=== PATIENT | male | born 1950 | race Caucasian/White ===

== ENCOUNTER → 2021-02-11 11:22 | Outpatient (CLI) | payer MEDICARE, OTHER, SELFPAY ==
[2021-02-11 12:15] LABS: Add Manual Diff / Slide Review NO; Basophils Absolute Auto 0 /uL (0-100); Basophils Percent Auto 0.8 % (0-2); Eosinophils Absolute Auto 100 /uL (0-450); Eosinophils Percent Auto 1.6 % (2-4); Hematocrit 39.2 % (41-53); Hemoglobin 13.3 g/dL (13.5-17.5); Lymphocytes Absolute Auto 1000 /uL (1100-4500); Mean Corpuscular Hemoglobin 29.3 PG (26-34); Mean Corpuscular Volume 86.4 fL (80-100); Monocytes Absolute Auto 400 /uL (0-900); Monocytes Percent Auto 7.2 % (3-14); Neutrophils Absolute Auto 3400 /uL (1500-7000); Neutrophils Percent Auto 69.4 % (50-75); Platelet Count 220 X10^3/uL (150-400); Red Blood Cell Count 4.54 X10^6/uL (4.5-5.9); Red Cell Distribution Width 13.7 % (11.6-14.8); White Blood Cell Count 4.9 X10^3/uL (4.5-11.0)
[2021-02-11 12:22] LABS: Hemoglobin A1C% w Est Avg Glu 4.9 % (4.0-6.0)
[2021-02-11 12:32] LABS: Alanine Aminotransferase 13 IU/L (<50); Albumin 4.4 g/dL (3.5-5.0); Albumin Globulin Ratio 1.6 (1.0-2.8); Alkaline Phosphatase 60 U/L (38-126); Aspartate Aminotransferase 20 IU/L (17-59); BUN Creatinine Ratio 23.9 (6-22); Bilirubin Total 0.5 mg/dL (0.2-1.3); Blood Urea Nitrogen 16 mg/dL (9-20); Calcium 9.4 mg/dL (8.4-10.2); Carbon Dioxide 24 mmol/L (22-32); Chloride 108 mmol/L (98-107); Cholesterol 125 mg/dL (140-199); Estimated Glomerular Filt Rate > 60.0 mL/min (>60); Globulin 2.7 g/dL (1.7-4.1); Glucose 92 mg/dL (80-110); HDL Cholesterol 49 mg/dL (40-60); Potassium 4.6 mmol/L (3.4-5.1); Sodium 140 mmol/L (137-145); Total Protein 7.1 g/dL (6.3-8.2); Triglycerides 43 mg/dL (35-150)
[2021-02-11 12:33] LABS: HEMOLYSIS < 15 (0-50); LDL Cholesterol Calculated 67 mg/dL (<100)
[2021-02-12 08:55] LABS: Prostate Specific Antigen 1.82 ng/mL (0.10-4.00)
== END ==
PROVIDERS: PCP Family Medicine; Referring Provider Family Medicine; Visit Provider Family Medicine
DX: I10 Essential (primary) hypertension (principal); Z80.42 Family history of malignant neoplasm of prostate
CPT/HCPCS: 36415; 80053; 80061; 83036; 84153; 85025

== ENCOUNTER → 2021-03-11 09:37 | Outpatient (CLI) | payer MEDICARE, OTHER, SELFPAY ==
[2021-03-11 10:10] LABS: BUN Creatinine Ratio 22.1 (6-22); Blood Urea Nitrogen 15 mg/dL (9-20); Calcium 9.1 mg/dL (8.4-10.2); Carbon Dioxide 25 mmol/L (22-32); Chloride 110 mmol/L (98-107); Estimated Glomerular Filt Rate > 60.0 mL/min (>60); Glucose 98 mg/dL (80-110); HEMOLYSIS < 15 (0-50); Potassium 4.8 mmol/L (3.4-5.1); Sodium 142 mmol/L (137-145)
== END ==
PROVIDERS: PCP Family Medicine; Referring Provider Family Medicine; Visit Provider Family Medicine
DX: I10 Essential (primary) hypertension (principal)
CPT/HCPCS: 36415; 80048

== ENCOUNTER → 2021-03-12 12:48 | Outpatient (CLI) | payer MEDICARE, OTHER, SELFPAY ==
--- NOTE | 2021-03-12 12:49 | DI.CT.S_ITS ---
PROCEDURE: CT ANGIO CHEST INDICATIONS: Surveillance for known thoracic aortic aneurysm TECHNIQUE: After the administration of intravenous contrast, 2 mm thick sections acquired from the pulmonary apices to the posterior costophrenic angles. 3-dimensional maximum intensity projection (MIP) coronal and sagittal reformats were then acquired through the thorax. For radiation dose reduction, the following was used: automated exposure control, adjustment of mA and/or kV according to patient size. COMPARISON: Outside Facility, , CT ANGIO CHEST, 02/13/2020, 7:57. FINDINGS: Image quality: Excellent. Aorta: The ascending thoracic aneurysmal dilatation described on the prior CT is unchanged measuring 4.8 x 4.8 centimeters. The aortic arch measures 3.1 centimeters, unchanged. The descending aorta measures 2.7 centimeters, unchanged. Lungs and pleura: No acute air space opacities. No pleural effusions or pneumothorax. Central and peripheral airways are patent and normal in caliber. Mediastinum: Heart chambers appear enlarged. The coronary arteries have atherosclerotic calcifications. No pericardial effusion. A prominent right hilar lymph node measuring 1.9 x 1.2 centimeters is unchanged. No mediastinal adenopathy by size criteria. Thoracic aorta and central pulmonary arteries are normal in size. Esophagus is normal in caliber. There is a small hiatal hernia. Bones and chest wall: No suspicious bony lesions. No vertebral body compression fractures. No axillary or supraclavicular adenopathy by size criteria. Thyroid gland is normal. Abdomen: Limited visualization of the upper abdomen shows no acute abnormality. IMPRESSION: 1. Aneurysmal dilatation of the ascending aorta measuring 4.8 x 4.8 centimeters, unchanged compared to prior CT on 02/13/2020. 2. Small hiatal hernia. 3. Coronary artery calcifications. Dictated by: Armando Ugalde M.D. on 03/26/2021 at 15:12 Approved by: Armnado Ugalde M.D. on 03/26/2021 at 15:21
== END ==
PROVIDERS: PCP Family Medicine; Referring Provider Family Medicine; Visit Provider Family Medicine
DX: I71.2 Thoracic aortic aneurysm, without rupture (principal); K44.9 Diaphragmatic hernia without obstruction or gangrene; I25.10 Atherosclerotic heart disease of native coronary artery without angina pectoris
CPT/HCPCS: 71275; Q9967

== ENCOUNTER → 2021-07-28 10:28 | Outpatient (CLI) | payer MEDICARE, OTHER, SELFPAY ==
--- NOTE | 2021-07-28 10:30 | DI.RAD.S_ITS ---
PROCEDURE: XR CERVICAL SPINE 2V OR 3V INDICATIONS: neck pain TECHNIQUE: 3 view(s) of the cervical spine were acquired. COMPARISON: None. FINDINGS: Bones: No fractures or dislocations to the C7-T1 level. The lateral masses of C1 appear intact on the odontoid view. No suspicious bony lesions. There is overall appearance of cervical straightening. Multilevel [id number] degenerative disc space narrowing is present most severe at C6-7. Minimal anterior osteophytes are present. Multilevel uncovertebral hypertrophy is present. Soft tissues: No prevertebral soft tissue swelling. IMPRESSION: Multilevel degenerative changes most notable at C6-7. Dictated by: Jennifer Arnold M.D. on 07/28/2021 at 16:10 Approved by: Jennifer Arnold M.D. on 07/28/2021 at 16:10
[2021-07-30 16:07] LABS: ANA Screen, IFA Negative (.)
== END ==
PROVIDERS: PCP Family Medicine; Referring Provider Family Medicine; Visit Provider Family Medicine
DX: M47.812 Spondylosis without myelopathy or radiculopathy, cervical region (principal); M54.2 Cervicalgia
CPT/HCPCS: 36415; 72040; 84550; 85651; 86038; 86430

== ENCOUNTER → 2021-09-09 09:11 | Outpatient (CLI) | payer MEDICARE, OTHER, SELFPAY ==
[2021-09-09 11:23] LABS: COVID19 -Nasal RAPID Negative (Negative)
== END ==
PROVIDERS: PCP Family Medicine; Referring Provider Family Medicine Sleep Medicine; Visit Provider Family Medicine Sleep Medicine
DX: Z20.822 Contact with and (suspected) exposure to COVID-19 (principal)
CPT/HCPCS: 87635; C9803

== ENCOUNTER → 2021-09-10 07:28 | Outpatient (CLI) | payer MEDICARE, OTHER, SELFPAY ==
--- NOTE | 2021-09-10 | DI.ECHO.S_ITS ---
[facility]---------+ [facility] +---------+ : : [address] : : : : [id number] : : : : Phone: [phone]+ Echocardiogram Report + + :Name: DARCY MELCHOR Study Date: 09/10/2021 Height: 69 in : :[facility] ReadingLocation: Weight: 175 lb : : Gender: Male BSA: 2.0 m2 : :: 1950 Age: 71 yrs BP: 150/80 mmHg: :Reason For Study: ESSENTIAL HYPERTENSION : :Ordering Physician: BRADLEY, : :RHEA Performed By: Laurie Simmons : :Referring: RHEA HUERTA : + + Interpretation Summary The ejection fraction is estimated to be 60-65%. Diastolic function could not be accurately assessed due to unobtainable data. The right ventricle is normal in size and function. There is mild aortic regurgitation. Pulmonary artery pressures cannot be estimated because of the lack of a measurable TR jet velocity. Procedure: A two-dimensional transthoracic echocardiogram with color flow and Doppler was performed. The study quality was technically adequate. There is no prior echocardiogram noted for this patient. The patient was in sinus rhythm with heart rates between 49-51 bpm during the exam. Left Ventricle: The left ventricle is normal in size and wall thickness. The ejection fraction is estimated to be 60-65%. Diastolic function could not be accurately assessed due to unobtainable data. Right Ventricle: The right ventricle is normal in size and function. Atria: The left atrial size is normal. Right atrial size is normal. There is no Doppler evidence for an interatrial shunt. Mitral Valve: The mitral valve is normal in structure and function. There is trace mitral regurgitation. Aortic Valve: There is mild aortic valve sclerosis. The aortic valve is trileaflet. There is no aortic valve stenosis. There is mild aortic regurgitation. Tricuspid Valve: The tricuspid valve is normal in structure and function. There is trace tricuspid regurgitation. Pulmonary artery pressures cannot be estimated because of the lack of a measurable TR jet velocity. Pulmonic Valve: The pulmonic valve leaflets are thin and pliable; valve motion is normal. The pulmonic valve is not well seen, but is grossly normal. There is mild pulmonic regurgitation. Great Vessels: The aortic root is borderline dilated. The ascending aorta is moderately enlarged. 4.7 cm. The IVC is of normal diameter and collapses greater than 50% with a sniff. This suggests a low right atrial pressure of 3 mm Hg. Pericardium/ Pleura There is no pericardial effusion. There is no pleural effusion. MMode/2D Measurements & Calculations LVIDd: 4.6 cm LVOT diam: 2.3 cm LVIDs: 2.9 cm Ao root diam: 3.9 cm FS: 37.9 % asc Aorta Diam: 4.7 cm IVSd: 0.76 cm Ao Arch Diam (Prox Trans): 3.4 cm LVPWd: 0.67 cm LV liu. diameter/BSA (cm/m^2): 2.4 LV sys. diameter/BSA (cm/m^2): 1.5 LA A2 area: 18.0 cm2 RA long axis: 5.2 cm LA A4 area: 15.4 cm2 RA area: 14.8 cm2 LA length (vol): 5.2 cm RA vol: 35.5 ml LA vol: 45.3 ml RA : 18.2 ml/m2 LA vol index: 23.2 ml/m2 IVC diam: 1.8 cm RVD1 (basal): 3.6 cm TAPSE: 2.1 cm Doppler Measurements & Calculations Ao V2 max: 145.2 cm/sec LVOT Max Davis: 94.0 cm/sec Ao V2 mean: 98.1 cm/sec LV V1 max P.5 mmHg Ao max P.4 mmHg LV V1 VTI: 24.6 cm Ao mean P.4 mmHg JOE(I,D): 2.9 cm2 Ao V2 VTI: 35.7 cm JOE(V,D): 2.8 cm2 sev ratio: 0.69 JOE indexed to BSA (cm^2/m^2): 1.5 AI P1/2t: 718.5 msec AI dec slope: 164.9 cm/sec2 MV E max davis: 56.3 cm/sec PA V2 max: 83.6 cm/sec MV A max davis: 51.5 cm/sec PA V2 mean: 57.0 cm/sec MV E/A: 1.1 PA mean P.5 mmHg Med Peak E' Davis: 5.8 cm/sec PA pr(Accel): 34.5 mmHg E/E' med: 9.7 Lat Peak E' Davis: 8.5 cm/sec E/E' lat: 6.6 E/e' average: 8.1 MV dec time: 0.29 sec SV(LVOT): 104.7 ml Reading Physician:11:51 AM
--- NOTE | 2021-09-10 19:59 | DI.NM.S_ITS ---
DATE OF SERVICE: 09/10/2021 PROCEDURE: Exercise perfusion study. INDICATION: Coronary artery calcification, hypertension and hyperlipidemia. RADIOPHARMACEUTICAL: 26.6 millicurie technetium-99m Myoview IV was injected at stress and 12.1 millicurie technetium-99m Myoview IV was injected at rest. CARDIAC STRESS: The patient walked on Fer protocol for 10 minutes and achieved 12.8 METs of workload and functional aerobic impairment -49 percent. The patient achieved maximum heart rate of 155, which was 105 percent of target heart rate. Baseline blood pressure 120/60. Peak blood pressure 200/100, suggestive of hypertensive response. The patient felt fatigue. No anginal symptoms. Baseline rhythm was sinus with mild sinus bradycardia and some flattening of ST-segment in inferolateral leads with repolarization changes. During peak exercise, there was up to 1.[address]-depression in leads V4 to V6 and some upsloping ST-depression in inferior leads. The patient has frequent runs of nonsustained ventricular tachycardia during peak exercise. Then maximum and longest run was an 8-beat run, rate about 150 beats per minute. Intermittent ventricular couplets and isolated PVCs were seen, as well. No sustained ventricular tachycardia. RAW DATA: There is increased subdiaphragmatic activity. GATED STUDY: Stress LV ejection fraction is 72 percent without any obvious wall motion abnormalities. Resting end-diastolic volume 119 mL. TID ratio 0.89, which is within normal limits. Lung/heart ratio 0.36, which is within normal limits. MYOCARDIAL PERFUSION SCAN: Stress supine and resting supine, as well as stress prone images, were compared to each other. Stress supine and resting supine images revealed small to moderate size, mildly decreased perfusion of mild to moderately decreased perfusion of base to mid inferior wall, which got completely resolved during stress prone images, suggestive of diaphragmatic attenuation artifact. CONCLUSION: 1. This is a normal myocardial perfusion study with evidence of diaphragmatic tissue attenuation artifact, which got resolved during the stress prone images. 2. Excellent exercise tolerance. The patient walked on Fer protocol for 10 minutes with JASON -49 percent. 3. Mildly hypertensive blood pressure response. 4. No anginal symptoms. 5. Frequent nonsustained ventricular tachycardia during peak exercise, mostly monomorphic. Longest run lasted for about 8 beats, rate about 150 beats per minute. No sustained ventricular tachycardia. Correlate clinically. Bola Sanderson - Timothy/ravindra doc#: [id number]/job#: [id number] dd: 09/10/2021 17:27:00 dt: 09/10/2021 19:44:00 DICTATING /COPIES TO: Renato Oviedo MD COPIES MNE: JANI;
== END ==
PROVIDERS: PCP Family Medicine; Visit Provider Student in an Organized Health Care Education/Training Program
DX: I77.89 Other specified disorders of arteries and arterioles (principal); I25.119 Atherosclerotic heart disease of native coronary artery with unspecified angina pectoris; I35.1 Nonrheumatic aortic (valve) insufficiency; I10 Essential (primary) hypertension; I71.2 Thoracic aortic aneurysm, without rupture; E78.5 Hyperlipidemia, unspecified
CPT/HCPCS: 78452; 93017; 93306; A9502

== ENCOUNTER → 2021-10-07 08:59 | Outpatient (CLI) | payer MEDICARE, OTHER, SELFPAY ==
[2021-10-07 10:23] LABS: Add Manual Diff / Slide Review NO; Basophils Absolute Auto 0 /uL (0-100); Basophils Percent Auto 0.5 % (0-2); Eosinophils Absolute Auto 100 /uL (0-450); Eosinophils Percent Auto 2.3 % (2-4); Hematocrit 39.6 % (41-53); Hemoglobin 13.6 g/dL (13.5-17.5); Lymphocytes Absolute Auto 1500 /uL (1100-4500); Lymphocytes Percent Auto 24.5 % (25-40); Mean Corpuscular HGB Conc 34.4 % (30-36); Mean Corpuscular Volume 84.2 fL (80-100); Monocytes Absolute Auto 400 /uL (0-900); Monocytes Percent Auto 7.4 % (3-14); Neutrophils Absolute Auto 3900 /uL (1500-7000); Neutrophils Percent Auto 65.3 % (50-75); Platelet Count 219 X10^3/uL (150-400); Red Cell Distribution Width 13.8 % (11.6-14.8)
[2021-10-07 10:39] LABS: Alanine Aminotransferase 12 IU/L (<50); Albumin 4.4 g/dL (3.5-5.0); Albumin Globulin Ratio 1.6 (1.0-2.8); Alkaline Phosphatase 57 U/L (38-126); Aspartate Aminotransferase 19 IU/L (17-59); BUN Creatinine Ratio 16.7 (6-22); Bilirubin Total 0.4 mg/dL (0.2-1.3); Blood Urea Nitrogen 11 mg/dL (9-20); Calcium 9.1 mg/dL (8.4-10.2); Carbon Dioxide 24 mmol/L (22-32); Chloride 109 mmol/L (98-107); Cholesterol 124 mg/dL (140-199); Estimated Glomerular Filt Rate > 60.0 mL/min (>60); Globulin 2.8 g/dL (1.7-4.1); Glucose 90 mg/dL (80-110); HDL Cholesterol 42 mg/dL (40-60); HEMOLYSIS < 15 (0-50); LDL Cholesterol Calculated 65 mg/dL (<100); Potassium 4.6 mmol/L (3.4-5.1); Sodium 141 mmol/L (137-145); Total Protein 7.2 g/dL (6.3-8.2); Triglycerides 85 mg/dL (35-150)
[2021-10-07 11:07] LABS: Prostate Specific Antigen Scrn 1.79 ng/mL (0.1-4.0)
== END ==
PROVIDERS: PCP Family Medicine; Referring Provider Family Medicine; Visit Provider Family Medicine
DX: I10 Essential (primary) hypertension (principal); Z12.5 Encounter for screening for malignant neoplasm of prostate; K60.2 Anal fissure, unspecified
CPT/HCPCS: 36415; 80053; 80061; 85025; G0103

== ENCOUNTER → 2021-11-27 11:26 | Outpatient (CLI) | payer MEDICARE, OTHER, SELFPAY ==
[2021-11-27 12:25] LABS: COVID19 -Nasal RAPID Negative (Negative)
== END ==
PROVIDERS: PCP Family Medicine; Visit Provider Family Medicine Sleep Medicine
DX: Z20.822 Contact with and (suspected) exposure to COVID-19 (principal)
CPT/HCPCS: 87635; C9803

== ENCOUNTER 2021-11-30 11:10 | Day surgery (SDC) | payer MEDICARE, OTHER, SELFPAY ==
--- NOTE | 2021-11-30 | PATH_ITS ---
[facility] Accession Number: [id number] . 01 Material submitted: . colon - POLYP TRANSVERSE COLON . 02 Diagnosis: Transverse Colon Polyp, Biopsy: Colonic mucosa with prominent benign lymphoid aggregate. Negative for serrated lesion, dysplasia or malignancy. MRV 12/01/2021 1400 Local . 02 Electronically signed: . Christophe Pierre MD, PhD, Pathologist NPI- [id number] . 01 Gross description: . POLYP TRANSVERSE COLON: Received in formalin is 1 fragment(s) of galaviz, soft tissue measuring 0.2 x 0.2 x 0.2 cm submitted entirely in 1 cassette(s) /ESSENCE 12/01/2021 0143 Local . 02 Pathologist provided ICD-10: K63.5 . 02 CPT . 301693 Specimen Comment: A courtesy copy of this report has been sent to [phone] Performed at: 01 [facility] [address] [facility], [place], [place] [id number] MD Gurdeep Villagomez MD Phone: [phone] Performed at: [address] [facility] [address] [place], [place] [id number] MD Barbi Ames MD Phone: [phone]
[2021-11-30 11:27] VITALS: BP 136/74; PULSE 66; RESP 16; TEMP 37.1; O2SAT 97
[2021-11-30] MEDS: LACTATED RINGERS 1,000 ML 84 ML IV (11:35)
--- NOTE | 2021-11-30 11:55 | PM.HP.1 ---
History of Present Illness History of Present Illness Date Patient Seen: 11/30/21 Time Patient Seen: 11:55 Chief complaint: SDC Narrative: I reviewed my note from November 17, 2021. The patient has noted an overall improvement with the addition of a fiber supplement and the nifedipine ointment. He believes the fiber supplement has been the most helpful thus far. Patient History Medical History Anal fissure CTS (carpal tunnel syndrome) Diverticular disease Family history of prostate cancer Hypertension Neck pain Thoracic aortic aneurysm Family & Social History Family History Father Prostate cancer Mother Brain aneurysm Social History: household members spouse Tobacco & Substance use: Smoking Status Never smoker alcohol intake current Meds Home Medications and Allergies Home Medications Medication Instructions Recorded Confirmed Type ascorbic acid (vitamin C) PO 02/11/21 09/28/21 History aspirin 81 mg tablet,delayed 81 mg PO DAILY 02/11/21 11/30/21 History release (Adult Low Dose Aspirin) cholecalciferol (vitamin D3) PO 02/11/21 09/28/21 History mecobalamin (vitamin B12) [B12 PO 02/11/21 09/28/21 History Active] amlodipine 5 mg tablet 5 mg PO DAILY #90 tab 07/28/21 11/30/21 Rx losartan 50 mg tablet See Rx Instructions .ROUTE 11/26/21 11/30/21 Rx .COMPLEX #90 tab Allergies Allergy/AdvReac Type Severity Reaction Status Date / Time No Known Drug Allergies Allergy Verified 11/30/21 11:18 Review of Systems Review of Systems ROS: Yes All systems reviewed with the patient and are negative except as otherwise documented Exam Vital Signs (past 8 hours): - 11/30/21 11:27 Temperature 98.8 F Pulse Rate 66 Respiratory Rate 16 Blood Pressure 136/74 Pulse Oximetry 97 Oxygen Delivery Method Room Air Const General: cooperative and comfortable Orientation: alert HENMT Head: normocephalic Ears: external ears normal Nose: external nose normal Face and sinus: normal facial exam Mouth: oral mucosae normal Eyes General: appearance normal, both eyes and all related structures Neck Neck: normal visual inspection Chest Chest: normal inspection of the chest Resp Effort & Inspection: normal respiratory effort Cardio Rate: regular rate GI Inspection: normal to inspection Skin General: no rashes or lesions noted and No jaundice Neuro General: patient alert and moves all extremities Cognition: normal cognition Speech: speech normal Extrem General: no pedal edema Psych Appearance: grossly normal Assessment & Plan Assessment & Plan narrative: 71-year-old male with a personal history of colon polyps. He has been experiencing some rectal pain that is not necessarily linked with attempts at defecation. Colonoscopy is pursued today. Time Spent With Patient Critical Care time: I spent a total of [] minutes of critical care time on this patient's care today; this time is exclusive of procedural time.
--- NOTE | 2021-11-30 11:57 | PM.PREOP ---
Pre-operative Note COVID-19 COVID-19 status: Negative Result date/Date tested (Pos, Neg/Pending): 11/27/21 Criteria for continued procedure: Possibility delay results in more complex future surgery or treatment Interval Note History & Physical reviewed/Exam performed by Physician: Yes Changes to H&P: Yes ASA Class (for procedural sedation): II
--- NOTE | 2021-11-30 13:51 | P.OP.COLON_ITS ---
Operative Date/Time/Diagnoses Date of procedure: 11/30/21 Time of procedure: 13:51 Pre-op diagnosis: Personal history of colon polyps. Rectal pain. Post-op diagnosis: same Procedure & Clinicians Study performed: Colonoscopy with cold forceps polypectomy Same procedure as scheduled: Yes Indications: Personal history of colon polyps, rectal pain. Surgeon: Julito Cartwright Procedure Notes SCOAP/Timeout: Done Procedure in detail: After the risks and benefits were explained, written and verbal informed consent was obtained. The patient was brought into the procedure room and placed into the left lateral decubitus position. Please see nurse treatment plant operator notes for sedation details. Digital rectal examination was accomplished. The scope was introduced into the patient and advanced under direct visualization to the cecum as identified by the appendiceal orifice and ileocecal valve. The scope was slowly withdrawn to carefully examine the mucosa for any defects or lesions. Comprehensive imaging was accomplished throughout the rectum including the dentate line. The colon was decompressed, the scope was then removed from the patient who tolerated the procedure well. Adult colonoscope Bowel prep adequate Scope withdrawal time: 10 minutes Sedation minutes: 18 Complications: none Impression: There was a diminutive polyp in the proximal transverse colon removed with cold forceps. No additional mucosal pathology was appreciated throughout including retroflexed views from within the rectum. Patient had grade 1 to grade 2 internal nonthrombosed nonbleeding hemorrhoids. No fissure was identified today. Endoscopic diagnosis 1. Grade 1-2 hemorrhoids 2. Colon diminutive colon polyp Post-procedure Plan for aftercare: 1. Await histopathology 2. Proceed with fiber based bowel regimen for soft daily bowel movements. Disposition: PACU
[2021-11-30 13:54] VITALS: BP 98/43; PULSE 64; RESP 20; TEMP 36.4; O2SAT 96
[2021-11-30 13:59] VITALS: BP 115/64; PULSE 70; RESP 20; O2SAT 97
[2021-11-30 14:04] VITALS: BP 122/73; PULSE 58; RESP 17; O2SAT 97
[2021-11-30 14:08] VITALS: BP 128/71; PULSE 55; RESP 16; TEMP 36.5; O2SAT 96
[2021-11-30 14:16] VITALS: BP 132/64; PULSE 68; RESP 14; O2SAT 99
== END 2021-11-30 14:23 | disposition home or self-care (01) ==
PROVIDERS: PCP Family Medicine; Referring Provider Internal Medicine Gastroenterology; Visit Provider Internal Medicine Gastroenterology
PROC: 0DJD8ZZ Inspection of Lower Intestinal Tract, Via Natural or Artificial Opening Endoscopic (ICD-10-PCS; CPT 45378; principal; 2021-11-30 12:30)
DX: K62.89 Other specified diseases of anus and rectum (principal); Z86.010 Personal history of colon polyps; K64.1 Second degree hemorrhoids; K63.5 Polyp of colon
CPT/HCPCS: 45380; J2704

== ENCOUNTER → 2022-10-28 07:53 | Outpatient (CLI) | payer MEDICARE, OTHER, SELFPAY ==
[2022-10-28 08:35] LABS: Add Manual Diff / Slide Review NO; Basophils Absolute Auto 100 /uL (0-100); Basophils Percent Auto 1.2 % (0-2); Eosinophils Absolute Auto 200 /uL (0-450); Eosinophils Percent Auto 3.7 % (2-4); Hematocrit 40.6 % (41-53); Hemoglobin 13.8 g/dL (13.5-17.5); Lymphocytes Absolute Auto 1400 /uL (1100-4500); Lymphocytes Percent Auto 24.6 % (25-40); Mean Corpuscular Hemoglobin 28.8 PG (26-34); Mean Corpuscular Volume 84.7 fL (80-100); Monocytes Absolute Auto 500 /uL (0-900); Monocytes Percent Auto 8.4 % (3-14); Neutrophils Absolute Auto 3500 /uL (1500-7000); Neutrophils Percent Auto 62.1 % (50-75); Platelet Count 219 X10^3/uL (150-400); Red Blood Cell Count 4.79 X10^6/uL (4.5-5.9); Red Cell Distribution Width 14.1 % (11.6-14.8); White Blood Cell Count 5.6 X10^3/uL (4.5-11.0)
[2022-10-28 09:53] LABS: Prostate Specific Antigen Scrn 1.93 ng/mL (0.1-4.0)
[2022-10-28 10:21] LABS: Alanine Aminotransferase 17 IU/L (<50); Albumin 4.3 g/dL (3.5-5.0); Albumin Globulin Ratio 1.6 (1.0-2.8); Alkaline Phosphatase 66 U/L (38-126); Aspartate Aminotransferase 23 IU/L (17-59); BUN Creatinine Ratio 15.4 (6-22); Bilirubin Total 0.8 mg/dL (0.2-1.3); Blood Urea Nitrogen 12 mg/dL (9-20); Calcium 8.9 mg/dL (8.4-10.2); Carbon Dioxide 23 mmol/L (22-32); Chloride 107 mmol/L (98-107); Estimated Glomerular Filt Rate > 60 mL/min (>60); Globulin 2.7 g/dL (1.7-4.1); Glucose 93 mg/dL (80-110); HEMOLYSIS < 15 (0-50); Potassium 4.9 mmol/L (3.4-5.1); Sodium 139 mmol/L (137-145)
== END ==
PROVIDERS: PCP Family Medicine; Referring Provider Family Medicine; Visit Provider Family Medicine
DX: Z12.5 Encounter for screening for malignant neoplasm of prostate (principal); Z80.42 Family history of malignant neoplasm of prostate; D64.9 Anemia, unspecified; I10 Essential (primary) hypertension
CPT/HCPCS: 36415; 80053; 85025; G0103

== ENCOUNTER 2022-10-30 06:49 | Emergency (ER) | payer MEDICARE, OTHER, SELFPAY ==
[2022-10-30] VITALS (8 sets, daily range): BP systolic 126–149; BP diastolic 68–69; PULSE 48–57; RESP 18–20; TEMP 36.6; O2SAT 96–99; BMI 27.3
[2022-10-30 07:40] LABS: Add Manual Diff / Slide Review NO; Basophils Absolute Auto 100 /uL (0-100); Basophils Percent Auto 0.8 % (0-2); Eosinophils Absolute Auto 200 /uL (0-450); Eosinophils Percent Auto 3.4 % (2-4); Hematocrit 40.1 % (41-53); Hemoglobin 13.7 g/dL (13.5-17.5); Lymphocytes Absolute Auto 1600 /uL (1100-4500); Lymphocytes Percent Auto 24.9 % (25-40); Mean Corpuscular HGB Conc 34.3 % (30-36); Mean Corpuscular Hemoglobin 28.8 PG (26-34); Mean Corpuscular Volume 83.9 fL (80-100); Monocytes Absolute Auto 500 /uL (0-900); Monocytes Percent Auto 6.8 % (3-14); Neutrophils Absolute Auto 4200 /uL (1500-7000); Neutrophils Percent Auto 64.1 % (50-75); Platelet Count 220 X10^3/uL (150-400); Red Blood Cell Count 4.77 X10^6/uL (4.5-5.9); Red Cell Distribution Width 13.9 % (11.6-14.8); White Blood Cell Count 6.6 X10^3/uL (4.5-11.0)
--- NOTE | 2022-10-30 07:42 | DI.CT.S_ITS ---
PROCEDURE: CT KIDNEY URETER BLADDER (KUB) INDICATIONS: R flank pain eval for stone TECHNIQUE: Axial sections were acquired from the lung bases to the pubic symphysis. Coronal and sagittal reformats were performed. For radiation dose reduction, the following was used: automated exposure control, adjustment of mA and/or kV according to patient size. COMPARISON: None. FINDINGS: Image quality: Excellent. Lung bases: Minor left base atelectasis. Tiny hiatal hernia. Heart: Partially imaged mild coronary artery calcification. URINARY: Right Kidney: Minor hydronephrosis. There is slight hyperdensity in the lower pole papilla but no other formed intrarenal calculi. There is a parapelvic cyst in the upper pole. Right Ureter: Mild right hydroureter. About 1 cm above the ureterovesicular junction, there is a round stone measuring 4 mm in diameter. Left Kidney: Punctate upper pole intrarenal calculus. No hydronephrosis. Left Ureter: No hydroureter or ureteral calculi. Bladder: Decompressed urinary bladder with normal wall thickness and no stone. ABDOMEN: Liver: Unenhanced appearance demonstrates a few rounded small cysts in the left lobe. Gallbladder: Normal. Biliary ducts: Nondilated. Pancreas: Normal. Spleen: Normal. Adrenal Glands: No nodules. Stomach and Bowel: Stomach, small bowel loops, and colon are unremarkable. Normal appendix. Peritoneum: No abnormal intraperitoneal fluid. No free air. Ventral Wall: No hernia. Abdominal Nodes: No enlarged retroperitoneal or mesenteric lymph nodes. Vessels: Aorta and inferior vena cava are normal in size. PELVIS: Pelvic Organs: Normal size prostate gland. Pelvic Nodes: No adenopathy. Miscellaneous: No inguinal hernias are seen. Bones: Unremarkable. IMPRESSION: 1. 4 mm right distal ureteral stone causing mild hydroureter and slight hydronephrosis. 2. Punctate left intrarenal calculus. No other intrarenal calculi seen. Dictated by: Aurelia Lr M.D. on 10/30/2022 at 8:25 Approved by: Aurelia Lr M.D. on 10/30/2022 at 8:31
--- NOTE | 2022-10-30 07:42 | ED.GENADULT ---
HPI - General Adult General Chief complaint: Abdominal Pain Stated complaint: rt. lower back and abd. pain Time Seen by Provider: 10/30/22 07:13 Source: patient Mode of arrival: Ambulatory History of Present Illness HPI narrative: Patient is a 72-year-old male who arrives in the emergency department for right lower back discomfort and abdominal pain. Patient states he is nauseous but has not been vomiting. No urinary symptoms. No change in bowel habits. He states last evening he thought that he was going to have some stomach upset however the pain that brought him in today started early this morning. He is never had a kidney stone before. No prior abdominal surgeries. No skin rashes. Has not tried anything for the symptoms prior to arrival. Related Data Home Medications Medication Instructions Recorded Confirmed ascorbic acid (vitamin C) PO 02/11/21 10/26/22 aspirin 81 mg tablet,delayed 81 mg PO DAILY 02/11/21 10/26/22 release (Adult Low Dose Aspirin) cholecalciferol (vitamin D3) PO 02/11/21 10/26/22 mecobalamin (vitamin B12) [B12 PO 02/11/21 10/26/22 Active] Previous Rx's Medication Instructions Recorded amlodipine 5 mg tablet See Rx Instructions .Route 10/04/22 .COMPLEX #90 tabs losartan 50 mg tablet See Rx Instructions .Route 10/13/22 .COMPLEX #90 tabs hydrocodone 5 mg-acetaminophen 325 1 tab PO Q4-6H PRN pain #10 tabs 10/30/22 mg tablet ondansetron 4 mg disintegrating 4 mg PO Q6H PRN nausea and 10/30/22 tablet vomiting #20 tabs tamsulosin 0.4 mg capsule (Flomax) 0.4 mg PO DAILY #14 caps 10/30/22 Allergies Allergy/AdvReac Type Severity Reaction Status Date / Time No Known Drug Allergies Allergy Verified 10/26/22 16:17 Review of Systems Constitutional Constitutional: Reports system reviewed and no additional complaints, except as documented Cardiovascular Cardiovascular: Reports system reviewed and no additional complaints, except as documented Respiratory Respiratory: Reports system reviewed and no additional complaints, except as documented Gastrointestinal Gastrointestinal: Reports system reviewed and no additional complaints, except as documented Genitourinary Genitourinary: Reports system reviewed and no additional complaints, except as documented Integumentary/Breasts Skin/Breast: Reports system reviewed and no additional complaints, except as documented Neurologic Neurologic: Reports system reviewed and no additional complaints, except as documented Patient History Medical History Anal fissure Arthralgia of multiple joints BPH (benign prostatic hyperplasia) CTS (carpal tunnel syndrome) Diverticular disease Family history of prostate cancer Hypertension Neck pain Thoracic aortic aneurysm Family History Father Prostate cancer Mother Brain aneurysm Social History household members: spouse Smoking Status: Never smoker alcohol intake: current substance use type: does not use Smoking Status: Never smoker alcohol intake frequency: 0-2 drinks per day Substance Use Type: does not use Exam Initial Vital Signs Initial Vital Signs: Vital Signs Temperature 97.8 F 10/30/22 07:07 Pulse Rate 50 L 10/30/22 07:07 Respiratory Rate 18 10/30/22 07:07 Blood Pressure 148/69 H 10/30/22 07:07 Pulse Oximetry 99 10/30/22 07:07 Oxygen Delivery Method Room Air 10/30/22 07:07 Const General: cooperative and No ill appearing HENMT Head: normal to inspection and normocephalic Resp Effort & Inspection: normal respiratory effort GI Inspection: normal to inspection Palpation: no hepatosplenomegaly Back/Spine/Pelvis Back: No CVA tenderness Skin General: no rashes or lesions noted Neuro General: patient alert and moves all extremities Extrem General: normal to inspection Course Orders Ordered: ED Orders 10/30/22 07:13 Urine Microscopic Stat 10/30/22 07:18 EKG-12 Lead Stat 10/30/22 07:30 Complete Blood Count AUTO DIFF Stat Comprehensive Metabolic Panel Stat Lipase Stat 10/30/22 07:42 CT kidney ureter bladder (KUB) Stat Ondansetron HCl (Ondansetron 4 Mg Odt) 4 mg PO NOW PRN PRN Reason: Nausea And Vomiting Ondansetron HCl (Ondansetron 4 Mg/2 Ml Inj) 4 mg IV NOW PRN PRN Reason: Nausea And Vomiting Last Admin: 10/30/22 07:52 Dose: 4 mg Documented By: AT Discontinued Medications Ketorolac Tromethamine (Ketorolac 30 Mg/Ml Vial) 30 mg IV NOW ONE Stop: 10/30/22 07:46 Last Admin: 10/30/22 07:51 Dose: 30 mg Documented By: AT Vital Signs Vital signs: Vital Signs - 8 hr 10/30/22 07:07 10/30/22 07:30 10/30/22 07:55 Temperature 97.8 F Pulse Rate 50 L 50 L Respiratory Rate 18 Blood Pressure 148/69 H 126/69 Pulse Oximetry 99 96 Oxygen Delivery Method Room Air Room Air 10/30/22 07:55 10/30/22 08:01 10/30/22 08:30 Temperature Pulse Rate 50 L 57 L 51 L Respiratory Rate Blood Pressure Pulse Oximetry 97 96 96 Oxygen Delivery Method Room Air Room Air Medical Decision Making Lab Data Lab results reviewed: Yes I reviewed the patient's lab results. 10/30/22 07:30 10/30/22 07:30 Labs: Lab Results 10/30/22 10/30/22 10/30/22 Range/Units 07:13 07:30 07:30 WBC 6.6 (4.5-11.0) X10^3/uL RBC 4.77 (4.5-5.9) X10^6/uL Hgb 13.7 (13.5-17.5) g/dL Hct 40.1 L (41-53) % MCV 83.9 (80-100) fL MCH 28.8 (26-34) PG MCHC 34.3 (30-36) % RDW 13.9 (11.6-14.8) % Plt Count 220 (150-400) X10^3/uL Neut % (Auto) 64.1 (50-75) % Lymph % (Auto) 24.9 L (25-40) % [place] % (Auto) 6.8 (3-14) % Eos % (Auto) 3.4 (2-4) % Baso % (Auto) 0.8 (0-2) % Neut # (Auto) 4200 (2575-2005) /uL Lymph # (Auto) 1600 (5581-1608) /uL [place] # (Auto) 500 (0-900) /uL Eos # (Auto) 200 (0-450) /uL Baso # (Auto) 100 (0-100) /uL Sodium 140 (137-145) mmol/L Potassium 3.7 D (3.4-5.1) mmol/L Chloride 107 (98-107) mmol/L Carbon Dioxide 23 (22-32) mmol/L BUN 14 (9-20) mg/dL Creatinine 0.84 (0.66-1.25) mg/dL Estimated GFR > 60 (>60) mL/min BUN/Creatinine Ratio 16.7 (6-22) Glucose 130 H (80-110) mg/dL Calcium 8.8 (8.4-10.2) mg/dL Total Bilirubin 0.6 (0.2-1.3) mg/dL AST 21 (17-59) IU/L ALT 18 (<50) IU/L Alkaline Phosphatase 69 (38-126) U/L Total Protein 7.6 (6.3-8.2) g/dL Albumin 4.4 (3.5-5.0) g/dL Globulin 3.2 (1.7-4.1) g/dL Albumin/Globulin Ratio 1.4 (1.0-2.8) Lipase 147 (23-300) U/L Urine RBC None seen (0-5/HPF) Urine WBC 0-1/hpf (0-5/HPF) Ur Squamous Epith Cells None seen (0-5/HPF) Urine Bacteria None seen (None) Ur Culture Indicated? Cult not indicated Urine Dip Bedside Urine Glucose Negative Bedside Urine Bilirubin - Negative Bedside Urine Ketone - Negative Urine Specific [place] 1.030 Bedside Urine Occult Blood - Negative Bedside Urine pH 6.0 Bedside Urine Protein +/- 15 Bedside Urine Urobilinogen - Negative Bedside Urine Nitrite - Negative Bedside Urine Leukocytes - Negative Esterase Point of care testing: Urine Dip Bedside Urine Glucose Negative Bedside Urine Bilirubin - Negative Bedside Urine Ketone - Negative Urine Specific [place] 1.030 Bedside Urine Occult Blood - Negative Bedside Urine pH 6.0 Bedside Urine Protein +/- 15 Bedside Urine Urobilinogen - Negative Bedside Urine Nitrite - Negative Bedside Urine Leukocytes - Negative Esterase ECG Data Attestation: I personally reviewed and interpreted this ECG as follows: Interpretation: Sinus bradycardia Ventricular rate of 47 First-degree AV block VT interval 222 milliseconds Left axis deviation No ST T wave changes MDM Narrative Medical decision making narrative: CT scan shows 4 mm right-sided ureteral stone. This is what is causing his symptoms today. His kidney functions unremarkable. No indication of any urinary tract infection. He states his symptoms have improved with the Toradol. I did discuss the findings of the CT scan with him. Will send home with symptom control. He was given return precautions. He expressed understanding and agreement with plan. Discharge Plan Departure Patient Disposition: Home Clinical Impression: Right distal ureteral calculus Instructions: DI for Kidney Stones Activity Restrictions/Additional Instructions: Continue to take all of your medications as directed. Contact your primary doctor for follow-up. If your symptoms do not improve you can contact the Urology Department at the number provided below. Return to the emergency department if you develop fevers, uncontrollable pain or nausea or inability to urinate. Prescriptions: New tamsulosin [Flomax] 0.4 mg capsule 0.4 mg PO DAILY Qty: 14 0RF ondansetron 4 mg tablet,disintegrating 4 mg PO Q6H PRN (Reason: nausea and vomiting) Qty: 20 0RF hydrocodone-acetaminophen 5-325 mg tablet 1 tab PO Q4-6H PRN (Reason: pain) Qty: 10 0RF No Action amlodipine 5 mg tablet See Rx Instructions .ROUTE .COMPLEX Qty: 90 0RF Dose Instruction: TAKE ONE TABLET BY MOUTH DAILY Rx Instructions: TAKE ONE TABLET BY MOUTH DAILY losartan 50 mg tablet See Rx Instructions .ROUTE .COMPLEX Qty: 90 0RF Dose Instruction: TAKE ONE TABLET BY MOUTH TWICE DAILY Rx Instructions: TAKE ONE TABLET BY MOUTH TWICE DAILY mecobalamin (vitamin B12) PO aspirin [Adult Low Dose Aspirin] 81 mg tablet,delayed release (DR/EC) 81 mg PO DAILY cholecalciferol (vitamin D3) PO ascorbic acid (vitamin C) PO Referrals: Steven De La Rosa DO [Primary Care Provider] - Stand Alone Forms: Patient Portal/API
[2022-10-30 07:50] LABS: Alanine Aminotransferase 18 IU/L (<50); Albumin 4.4 g/dL (3.5-5.0); Albumin Globulin Ratio 1.4 (1.0-2.8); Alkaline Phosphatase 69 U/L (38-126); Aspartate Aminotransferase 21 IU/L (17-59); BUN Creatinine Ratio 16.7 (6-22); Bilirubin Total 0.6 mg/dL (0.2-1.3); Blood Urea Nitrogen 14 mg/dL (9-20); Calcium 8.8 mg/dL (8.4-10.2); Carbon Dioxide 23 mmol/L (22-32); Chloride 107 mmol/L (98-107); Estimated Glomerular Filt Rate > 60 mL/min (>60); Globulin 3.2 g/dL (1.7-4.1); Glucose 130 mg/dL (80-110); HEMOLYSIS 21 (0-50); Lipase 147 U/L (23-300); Potassium 3.7 mmol/L (3.4-5.1); Sodium 140 mmol/L (137-145); Total Protein 7.6 g/dL (6.3-8.2)
[2022-10-30] MEDS: KETOROLAC 30 MG/ML VIAL IV (07:51)
[2022-10-30] MEDS: ONDANSETRON 4 MG/2 ML INJ IV (07:52)
[2022-10-30 07:53] LABS: Bacteria Urine None Seen; Culture Indicated Urine Cult Not Indicated; RBC Urine None Seen (0-5/HPF); Squamous Epithelial Cell Urine None Seen (0-5/HPF); WBC Urine 0-1/HPF (0-5/HPF)
--- NOTE | 2022-10-30 07:55 | PC.NURSE ---
Patient reports vomiting in the bathroom and increase in pain, Dr. Cortez aware.
== END 2022-10-30 09:35 | disposition home or self-care (01) ==
PROVIDERS: Emergency Provider Emergency Medicine; PCP Family Medicine
DX: N20.1 Calculus of ureter (principal)
CPT/HCPCS: 36415; 74176; 80053; 81003; 81015; 83690; 85025; 93005; 93010; 96374; 96375; 99284; J1885; J2405

== ENCOUNTER → 2023-01-28 16:26 | Outpatient (CLI) | payer MEDICARE, OTHER, SELFPAY ==
--- NOTE | 2023-01-28 16:29 | DI.RAD.S_ITS ---
PROCEDURE: XR CERVICAL SPINE 2V OR 3V INDICATIONS: Neck pain TECHNIQUE: 3 view(s) of the cervical spine were acquired. COMPARISON: [facility], CR, XR CERVICAL SPINE 2V OR 3V, 07/28/2021, 10:25. FINDINGS: Bones: No fractures or dislocations to the C7 level. The lateral masses of C1 appear intact on the odontoid view. No suspicious bony lesions. Multilevel disc space narrowing and endplate osteophyte formation as well as facet hypertrophy. Soft tissues: No prevertebral soft tissue swelling. IMPRESSION: Multilevel degenerative disc and facet disease. No acute fracture. No osseous lesion. If symptoms and/or clinical suspicion for pathology persist, further assessment with repeat, or advanced imaging (e.g., CT, MRI, or bone scan) may be helpful for further assessment. Dictated by: Rashi Wolfe M.D. on 01/28/2023 at 16:43 Approved by: Rashi Wolfe M.D. on 01/28/2023 at 16:43
== END ==
PROVIDERS: PCP Family Medicine; Referring Provider Family Medicine; Visit Provider Family Medicine
DX: M50.30 Other cervical disc degeneration, unspecified cervical region (principal); M47.892 Other spondylosis, cervical region
CPT/HCPCS: 72040

== ENCOUNTER 2023-03-07 11:15 | Outpatient (RCR) | payer MEDICARE, OTHER, SELFPAY ==
--- NOTE | 2023-03-03 16:55 | PT.OIE ---
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) Cervicalgia (03/03/23) Abnormal posture (03/03/23) Past Medical History (Last Reviewed 01/28/23 @ 16:25 by Steven De La Rosa DO) Anal fissure Arthralgia of multiple joints BPH (benign prostatic hyperplasia) CTS (carpal tunnel syndrome) Diverticular disease Family history of prostate cancer Hypertension Neck pain Thoracic aortic aneurysm Visit Care Team Role Provider Type Steven De La Rosa DO Attending Provider Physician Family Provider Primary Care Provider Referring Provider Specialty: [facility] Address: [address] [place] [address] Email: [email or web address] Initial Evaluation PT-OP-A Visit Information Start: 03/03/23 07:53 Freq: Status: Active Protocol: Document 03/03/23 07:58 SAK (Rec: 03/03/23 08:44 SAK [id number]) Out-Patient Physical Therapy Visit Information Visit Information Visit Type Initial Evaluation Visit Start Time 08:00 Visit Stop Time 08:44 Total Visit Minutes 44 Visit Number 1 Evaluation Information Evaluation Date 03/03/23 PT-OP-B Current Condition Start: 03/03/23 07:53 Freq: Status: Active Protocol: Document 03/03/23 07:58 SAK (Rec: 03/03/23 08:44 SAK [id number]) Current Condition History of Current Condition Onset Date 1 month Current Complaints neck pain History of Current Condition HIstgory of intermittant neck pain for about 7 years. When lays on back at times will have spasms in upper neck radiating down to stomach. Reports about 1 month ago, had sudden onset neck pain which radiated into left shoulder with no known cause. Has improved some at this point but is concerned about it returning and also about the persistent spasms he occasionally gets in neck. Denies N/T or strength loss. Prior Treatments and Tests 2020 x-ray neck showed spondylosis no treatment except Advil, trying to avoid prolonged awkward postures. Treatment Goals Patient/Caregiver Goals learn how to prevent further exacerbations of pain. PT-OP-C Subjective Start: 03/03/23 07:53 Freq: Status: Active Protocol: Document 03/03/23 07:58 SAK (Rec: 03/03/23 16:52 [facility] [id number]) Patient Questionnaires Neck Disability Index NDI Score 17 OP-PT Pain Assessment Pain Assessment Grid Paper Pain Assessment Grid Completed Yes Location neck Pain Location Details see pain chart Intensity 5 Description Aching,Radiating,Tender Frequency Intermittent PT-OP-H Neuro Start: 03/03/23 07:53 Freq: Status: Active Protocol: Document 03/03/23 07:58 [facility] (Rec: 03/03/23 16:52 [facility] [id number]) Sensation Evaluation Gross Sensation Gross Sensation WNL Deep Tendon Reflex & Clonus Assessment Deep Tendon Reflex Bilateral Bicep Deep Tendon Reflex 2+ Normal PT-OP-J Posture/Palpation/Skin Start: 03/03/23 07:53 Freq: Status: Active Protocol: Document 03/03/23 07:58 [facility] (Rec: 03/03/23 16:53 [facility] [id number]) Palpation Assessment Location suboccipital Palpation Findings Soft Tissue Tightness,Muscle Guarding [place] Palpation Findings Soft Tissue Tightness,Trigger Point PT-OP-K Range of Motion Start: 03/03/23 07:53 Freq: Status: Active Protocol: Document 03/03/23 07:58 [facility] (Rec: 03/03/23 08:44 [facility] [id number]) Cervical Spine Range of Motion Cervical Spine Active Flexion 34 Extension 26 Rotation Left 46 Rotation Right 32 Lateral Flexion Left 22 Lateral Flexion Right 18 ROM Limitations Bony Restriction,Muscle Weakness Shoulder Goniometric Range of Motion Shoulder belén Shoulder ROM WFL Yes PT-OP-L Special Tests Start: 03/03/23 07:53 Freq: Status: Active Protocol: Document 03/03/23 07:58 [facility] (Rec: 03/03/23 16:54 [facility] [id number]) Special Tests Cervical Spine Special Tests Traction Test Results - Shoulder Abduction Test Test Results - Passive Neck Flexion Test Results - [place]am[place] Compression Test Results + PT-OP-M Strength Start: 03/03/23 07:53 Freq: Status: Active Protocol: Document 03/03/23 07:58 [facility] (Rec: 03/03/23 16:52 [facility] [id number]) Cervical Spine Strength Cervical Spine Manual Muscle Testing Flexion (C1-2) 4+ Good+ Extension 4+ Good+ Rotation Left 4+ Good+ Rotation Right 4+ Good+ Lateral Flexion Left (C3) 4+ Good+ Lateral Flexion Right (C3) 4+ Good+ Shoulder Strength Shoulder Manual Muscle Testing belén Flexion 4+ Good+ Extension 4+ Good+ Abduction (C5) 4+ Good+ Adduction 5 Normal External Rotation 4 Good Internal Rotation 4+ Good+ PT-OP-Q Treatments Start: 03/03/23 07:53 Freq: Status: Active Protocol: Document 03/03/23 07:58 SAK (Rec: 03/03/23 16:54 [facility] [id number]) Self-Care/Home Management Treatment Education Patient Education Body Mechanics,Home Exercise Program,Posture Other Education bed positioning supine and sidelying for neck support PT-OP-T Assessment and Plan Start: 03/03/23 07:53 Freq: Status: Active Protocol: Document 03/03/23 07:58 [facility] (Rec: 03/03/23 08:44 [facility] [id number]) Physical Therapy Assessment Goals Three Impairment neck disability index score Penitentiary Goal (LTG) Patient to report NDI no greater than 10% as measure of improved neck function LTG Duration 04/03/23 Two Impairment neck pain and spasms Meat Carrier Goal (LTG) Patient to report no episodes of neck pain or muscle spasms LTG Duration 05/03/23 One Impairment postural impairment and poor body mechanics Short Term Goal (STG) Patient to be instructed in HEP for purposes of postural correction and instructed in proper body mechanics for neck protection and health STG Duration 03/17/23 Penitentiary Goal (LTG) Patient to demonstrate improved postural awareness, good body mechanics understanding and be independent and compliant with HEP. LTG Duration 04/03/23 Assessment Summary Assessment Patient presents to PT with recent history of function- limiting neck pain largely improved now, neck spasms when lays supine at times. Patient concerned about the spasms and the recent pain returning. Signs and symptoms are consistent with arthritis as well as postural impairment highly contributory with forward head, rounded and internally rotated shoulders, protracted scapula. Feel he would benefit from short course of PT for individualized therapeutic exercise instruction focused on postural correction and posterior chain strengthening as well as body mechanics and bed positioning education. POC was discussed and patient was in agreement. Physical Therapy Plan Frequency and Duration Frequency of Treatment 2x/Week Duration of treatment (weeks) 4 Plan of Care Start Date 03/03/23 Plan of Care End Date 04/03/23 Next Visit Focus/Plan Next Note Type Treatment Note Next Visit Plan REview HEP and bed positioning as instructed today, progress with further body mechanics and exercise instruction, suboccipital release manual technique. Possible moist heat for muscle relaxation and pain management after end of active treatment.
--- NOTE | 2023-03-03 16:55 | PT.OPPOC ---
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) Cervicalgia (03/03/23) Abnormal posture (03/03/23) Visit Care Team Role Provider Type Steven De La Rosa DO Attending Provider Physician Family Provider Primary Care Provider Referring Provider Specialty: Family Practice Address: [address] [place] [address], [facility] Email: [email or web address] Plan Of Care PT-OP-T Assessment and Plan Start: 03/03/23 07:53 Freq: Status: Active Protocol: Document 03/03/23 07:58 SAK (Rec: 03/03/23 08:44 SAK [id number]) Physical Therapy Assessment Goals Three Impairment neck disability index score Senior Wind Turbine Technician Goal (LTG) Patient to report NDI no greater than 10% as measure of improved neck function LTG Duration 04/03/23 Two Impairment neck pain and spasms Senior Wind Turbine Technician Goal (LTG) Patient to report no episodes of neck pain or muscle spasms LTG Duration 05/03/23 One Impairment postural impairment and poor body mechanics Short Term Goal (STG) Patient to be instructed in HEP for purposes of postural correction and instructed in proper body mechanics for neck protection and health STG Duration 03/17/23 Custodial Goal (LTG) Patient to demonstrate improved postural awareness, good body mechanics understanding and be independent and compliant with HEP. LTG Duration 04/03/23 Assessment Summary Assessment Patient presents to PT with recent history of function- limiting neck pain largely improved now, neck spasms when lays supine at times. Patient concerned about the spasms and the recent pain returning. Signs and symptoms are consistent with arthritis as well as postural impairment highly contributory with forward head, rounded and internally rotated shoulders, protracted scapula. Feel he would benefit from short course of PT for individualized therapeutic exercise instruction focused on postural correction and posterior chain strengthening as well as body mechanics and bed positioning education. POC was discussed and patient was in agreement. Physical Therapy Plan Frequency and Duration Frequency of Treatment 2x/Week Duration of treatment (weeks) 4 Plan of Care Start Date 03/03/23 Plan of Care End Date 04/03/23 Next Visit Focus/Plan Next Note Type Treatment Note Next Visit Plan REview HEP and bed positioning as instructed today, progress with further body mechanics and exercise instruction, suboccipital release manual technique. Possible moist heat for muscle relaxation and pain management after end of active treatment. Plan of Care Dates Plan of Care Start Date 03/03/23 Plan of Care End Date 04/03/23 Electronically Signed by: Amy Wilkes, PT 03/03/23 [id number] If you are in agreement with this Plan of Care, please return a signed and dated copy. I have reviewed this Plan of Care and certify that the skilled therapy services above are required to meet the patient?s needs. Physician Signature Date Printed Name and Credentials Clinical Instructor Signature Printed Name and Credentials
--- NOTE | 2023-03-07 11:57 | PT.OTN ---
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) Cervicalgia (03/07/23) Abnormal posture (03/07/23) Physical Therapy Treatment Note PT-OP-A Visit Information Start: 03/03/23 07:53 Freq: Status: Active Protocol: Document 03/07/23 11:17 SAK (Rec: 03/07/23 11:56 [facility] [id number]) Out-Patient Physical Therapy Visit Information Visit Information Visit Type Treatment Note Visit Start Time 11:17 Visit Number 2 Evaluation Information Evaluation Date 03/03/23 PT-OP-B Current Condition Start: 03/03/23 07:53 Freq: Status: Active Protocol: Document 03/07/23 11:17 SAK (Rec: 03/07/23 11:56 [facility] [id number]) Current Condition History of Current Condition Onset Date 1 month Current Complaints neck pain History of Current Condition HIstgory of intermittant neck pain for about 7 years. When lays on back at times will have spasms in upper neck radiating down to stomach. Reports about 1 month ago, had sudden onset neck pain which radiated into left shoulder with no known cause. Has improved some at this point but is concerned about it returning and also about the persistent spasms he occasionally gets in neck. Denies N/T or strength loss. Prior Treatments and Tests 2020 x-ray neck showed spondylosis no treatment except Advil, trying to avoid prolonged awkward postures. Treatment Goals Patient/Caregiver Goals learn how to prevent further exacerbations of pain. PT-OP-C Subjective Start: 03/03/23 07:53 Freq: Status: Active Protocol: Document 03/07/23 11:17 SAK (Rec: 03/07/23 11:56 [facility] [id number]) OP-PT Subjective Patient Comments Patient Comments No new c/o, has ordered weight bench for use at home PT-OP-H Neuro Start: 03/03/23 07:53 Freq: Status: Active Protocol: Document 03/03/23 07:58 SAK (Rec: 03/03/23 16:52 [facility] [id number]) Sensation Evaluation Gross Sensation Gross Sensation WNL Deep Tendon Reflex & Clonus Assessment Deep Tendon Reflex Bilateral Bicep Deep Tendon Reflex 2+ Normal PT-OP-J Posture/Palpation/Skin Start: 03/03/23 07:53 Freq: Status: Active Protocol: Document 03/03/23 07:58 SAK (Rec: 03/03/23 16:53 [facility] [id number]) Palpation Assessment Location suboccipital Palpation Findings Soft Tissue Tightness,Muscle Guarding UT Palpation Findings Soft Tissue Tightness,Trigger Point PT-OP-K Range of Motion Start: 03/03/23 07:53 Freq: Status: Active Protocol: Document 03/03/23 07:58 [facility] (Rec: 03/03/23 08:44 [facility] [id number]) Cervical Spine Range of Motion Cervical Spine Active Flexion 34 Extension 26 Rotation Left 46 Rotation Right 32 Lateral Flexion Left 22 Lateral Flexion Right 18 ROM Limitations Bony Restriction,Muscle Weakness Shoulder Goniometric Range of Motion Shoulder belén Shoulder ROM WFL Yes PT-OP-L Special Tests Start: 03/03/23 07:53 Freq: Status: Active Protocol: Document 03/03/23 07:58 [facility] (Rec: 03/03/23 16:54 [facility] [id number]) Special Tests Cervical Spine Special Tests Traction Test Results - Shoulder Abduction Test Test Results - Passive Neck Flexion Test Results - Foraminal Compression Test Results + PT-OP-M Strength Start: 03/03/23 07:53 Freq: Status: Active Protocol: Document 03/03/23 07:58 [facility] (Rec: 03/03/23 16:52 [facility] [id number]) Cervical Spine Strength Cervical Spine Manual Muscle Testing Flexion (C1-2) 4+ Good+ Extension 4+ Good+ Rotation Left 4+ Good+ Rotation Right 4+ Good+ Lateral Flexion Left (C3) 4+ Good+ Lateral Flexion Right (C3) 4+ Good+ Shoulder Strength Shoulder Manual Muscle Testing belén Flexion 4+ Good+ Extension 4+ Good+ Abduction (C5) 4+ Good+ Adduction 5 Normal External Rotation 4 Good Internal Rotation 4+ Good+ PT-OP-Q Treatments Start: 03/03/23 07:53 Freq: Status: Active Protocol: Document 03/07/23 11:17 [facility] (Rec: 03/07/23 11:56 [facility] [id number]) Therapeutic Exercises Supine Exercises pec stretch Reps/Minutes 2x30 Sidelying Exercises open book Reps/Minutes 5x belén Standing Exercises shoulder ext Equipment Used purple TB row Equipment Used purple TB Reps/Minutes 10x5 doorway stretch Reps/Minutes 2x30 Manual Therapy Treatment Soft Tissue Mobilization c/s Mobilization Type Myofascial Release,Strumming, Sustained Pressure Comments suboccipital release Self-Care/Home Management Treatment Education Patient Education Body Mechanics,Home Exercise Program,Posture Other Education use of theracane for UT, periscapular musculature review of picture take of patient in waiting room, cues for improved shoulder alignment with standing and walking (thumb forward) PT-OP-T Assessment and Plan Start: 03/03/23 07:53 Freq: Status: Active Protocol: Document 03/07/23 11:17 YVONNE (Rec: 03/07/23 11:56 [facility] [id number]) Physical Therapy Assessment Goals Three Impairment neck disability index score Nursing Home Goal (LTG) Patient to report NDI no greater than 10% as measure of improved neck function LTG Duration 04/03/23 Two Impairment neck pain and spasms Nursing Home Goal (LTG) Patient to report no episodes of neck pain or muscle spasms LTG Duration 05/03/23 One Impairment postural impairment and poor body mechanics Short Term Goal (STG) Patient to be instructed in HEP for purposes of postural correction and instructed in proper body mechanics for neck protection and health STG Duration 03/17/23 Nursing Home Goal (LTG) Patient to demonstrate improved postural awareness, good body mechanics understanding and be independent and compliant with HEP. LTG Duration 04/03/23 Progress Towards Goals Progress Towards Goals Progressing Toward Goals,Goals Met Assessment Summary Assessment HEP reviewed with PT corrections and cues made for proper posture and body mechanics, including photo taken of patient sitting in waiting room on his phone for review. Patient demonstrated good understanding of all above and at this time no further PT needs. Patient requesting discharge from PT Physical Therapy Plan Frequency and Duration Frequency of Treatment 2x/Week Duration of treatment (weeks) 4 Plan of Care Start Date 03/03/23 Plan of Care End Date 04/03/23 Discharge Physical Therapy Discharge Reasons Goals Met
== END 2023-03-08 14:42 | disposition home or self-care (01) ==
LOC: PHYS 11:15
PROVIDERS: Family Provider Family Medicine; PCP Family Medicine; Referring Provider Family Medicine; Visit Provider Family Medicine
DX: M43.00 Spondylolysis, site unspecified (principal); M54.2 Cervicalgia; R29.3 Abnormal posture
CPT/HCPCS: 97110; 97140; 97162; 97535

== ENCOUNTER → 2023-09-06 09:05 | Outpatient (CLI) | payer MEDICARE, OTHER, SELFPAY ==
[2023-09-06 09:56] LABS: COVID-19 CEPHEID 4-PLEX PCR POSITIVE (Negative); Influenza A - CEPHEID Flu A NEGATIVE (NEGATIVE); Influenza B - CEPHEID Flu B NEGATIVE (NEGATIVE); Respiratory Syncytial Virus Negative (Negative)
== END ==
PROVIDERS: Family Provider Family Medicine; PCP Family Medicine; Visit Provider Physician Assistant
DX: R05.1 Acute cough (principal)
CPT/HCPCS: 0241U

== ENCOUNTER → 2023-10-28 10:27 | Outpatient (CLI) | payer MEDICARE, OTHER, SELFPAY ==
[2023-10-28 11:34] LABS: Add Manual Diff / Slide Review NO; Basophils Absolute Auto 0 /uL (0-100); Basophils Percent Auto 0.7 % (0-2); Eosinophils Absolute Auto 100 /uL (0-450); Eosinophils Percent Auto 1.4 % (2-4); Hematocrit 41.9 % (41-53); Hemoglobin 14.5 g/dL (13.5-17.5); Lymphocytes Absolute Auto 1400 /uL (1100-4500); Lymphocytes Percent Auto 20.7 % (25-40); Mean Corpuscular HGB Conc 34.5 % (30-36); Mean Corpuscular Hemoglobin 29.7 PG (26-34); Mean Corpuscular Volume 85.9 fL (80-100); Monocytes Absolute Auto 500 /uL (0-900); Neutrophils Absolute Auto 4800 /uL (1500-7000); Neutrophils Percent Auto 70.2 % (50-75); Platelet Count 260 X10^3/uL (150-400); Red Blood Cell Count 4.87 X10^6/uL (4.5-5.9); White Blood Cell Count 6.9 X10^3/uL (4.5-11.0)
[2023-10-28 12:02] LABS: Alanine Aminotransferase 14 IU/L (<50); Albumin 4.7 g/dL (3.5-5.0); Albumin Globulin Ratio 1.5 (1.0-2.8); Alkaline Phosphatase 68 U/L (38-126); Aspartate Aminotransferase 20 IU/L (17-59); BUN Creatinine Ratio 14.5 (6-22); Bilirubin Total 0.7 mg/dL (0.2-1.3); Blood Urea Nitrogen 11 mg/dL (9-20); Calcium 9.6 mg/dL (8.4-10.2); Carbon Dioxide 27 mmol/L (22-32); Chloride 109 mmol/L (98-107); Cholesterol 152 mg/dL (140-199); Estimated Glomerular Filt Rate > 60 mL/min (>60); Globulin 3.1 g/dL (1.7-4.1); Glucose 96 mg/dL (80-110); HDL Cholesterol 42 mg/dL (40-60); HEMOLYSIS < 15 (0-50); LDL Cholesterol Calculated 89 mg/dL (<100); Potassium 5.4 mmol/L (3.4-5.1); Sodium 142 mmol/L (137-145); Total Protein 7.8 g/dL (6.3-8.2); Triglycerides 106 mg/dL (35-150)
[2023-10-28 12:26] LABS: Prostate Specific Antigen Scrn 2.81 ng/mL (0.1-4.0)
== END ==
PROVIDERS: Family Provider Family Medicine; PCP Family Medicine; Referring Provider Family Medicine; Visit Provider Family Medicine
DX: I10 Essential (primary) hypertension (principal); Z12.5 Encounter for screening for malignant neoplasm of prostate; N40.0 Benign prostatic hyperplasia without lower urinary tract symptoms; Z80.42 Family history of malignant neoplasm of prostate
CPT/HCPCS: 36415; 80053; 80061; 85025; G0103

== ENCOUNTER → 2024-03-22 08:12 | Outpatient (CLI) | payer MEDICARE, OTHER, SELFPAY ==
[2024-03-22 10:46] LABS: Prostate Specific Antigen Scrn 2.42 ng/mL (0.1-4.0)
== END ==
PROVIDERS: Family Provider Family Medicine; PCP Family Medicine; Referring Provider Family Medicine; Visit Provider Family Medicine
DX: Z12.5 Encounter for screening for malignant neoplasm of prostate (principal); Z80.42 Family history of malignant neoplasm of prostate
CPT/HCPCS: 36415; G0103

== ENCOUNTER 2024-04-24 06:47 | Day surgery (SDC) | payer MEDICARE, OTHER, SELFPAY ==
[2024-04-20 16:46] VITALS: BMI 29.4
[2024-04-24 07:00] VITALS: BMI 27.3
[2024-04-24 07:06] VITALS: BP 149/69; PULSE 53; RESP 17; TEMP 36.7; O2SAT 96
[2024-04-24] MEDS: LACTATED RINGERS 1,000 ML 42 ML IV (07:12)
[2024-04-24] MEDS: ACETAMINOPHEN 325 MG TABLET 650 MG PO (07:17)
[2024-04-24] MEDS: FAMOTIDINE 20 MG/2 ML VIAL IV (07:18)
--- NOTE | 2024-04-24 07:27 | SUR.OPER ---
Prone on padded OR bed, head in foam head support, gel chest rolls, gel pad under knees, pillow under lower legs, toes free of pressure, arms secured on padded arm boards at <90 degrees abduction. Safety belt at thigh.
--- NOTE | 2024-04-24 07:42 | PM.HP.1 ---
History of Present Illness History of Present Illness Date Patient Seen: 04/24/24 Time Patient Seen: 07:42 Chief complaint: OHC Narrative: Bola 74-year-old man with anorectal pain from hemorrhoids versus fissure. See office note from January for details. His symptoms have improved somewhat since January. [facility], [facility] Medical History (Updated 01/30/24 @ 13:02 by Yves Chambers RN) Peptic ulcer disease Bicuspid aortic valve Prolapsed internal hemorrhoids Medicare annual wellness visit, subsequent Borderline hyperlipidemia Cataract Encounter for well adult exam without abnormal findings BPH (benign prostatic hyperplasia) Arthralgia of multiple joints Anal fissure CTS (carpal tunnel syndrome) Neck pain Thoracic aortic aneurysm Family history of prostate cancer Diverticular disease Hypertension Family History Father Prostate cancer Mother Brain aneurysm Social History household members: spouse Smoking Status: Never smoker alcohol intake: current substance use type: does not use Meds Home Medications and Allergies Home Medications Medication Instructions Recorded Confirmed Type ascorbic acid (vitamin C) PO 02/11/21 01/30/24 History aspirin 81 mg tablet,delayed 81 mg PO DAILY 02/11/21 04/24/24 History release (Adult Low Dose Aspirin) cholecalciferol (vitamin D3) PO 02/11/21 01/30/24 History mecobalamin (vitamin B12) [B12 PO 02/11/21 01/30/24 History Active] glucosamine HCl PO 10/28/23 01/30/24 History amlodipine 5 mg tablet See Rx Instructions .Route 11/02/23 04/24/24 Rx .COMPLEX #90 tabs losartan 50 mg tablet See Rx Instructions .Route 11/02/23 04/24/24 Rx .COMPLEX #180 tabs Allergies Allergy/AdvReac Type Severity Reaction Status Date / Time No Known Drug Allergies Allergy Verified 04/24/24 06:58 Exam Vital Signs (past 8 hours): - 04/24/24 07:06 Temperature 98.0 F Pulse Rate 53 L Respiratory Rate 17 Blood Pressure 149/69 H Pulse Oximetry 96 Oxygen Delivery Method Room Air Oxygen Delivery Method Room Air Const General: healthy appearing Resp Effort & Inspection: normal respiratory effort Assessment & Plan Assessment and plan (1) Rectal pain: Status: Acute Plan To OR for examination under anesthesia. Time-Based Coding :: [TOTAL MINUTES] spent with patient and on the chart (including review of chart, obtaining history, exam, reviewing outside data, placing orders, documenting exam and treatment plan, and counseling patient) on [DATE].
[2024-04-24] MEDS: BUPIVACAINE 0.25% INJ (08:16)
[2024-04-24] MEDS: BUPIVACAINE LIPOSOME INJ (08:16)
[2024-04-24] MEDS: ONABOTULINUMTOXINA 100 UNIT VIAL INJ (08:25)
--- NOTE | 2024-04-24 08:33 | PM.OP.1 ---
Operative Date/Time/Diagnoses Date of procedure: 04/24/24 Time of procedure: 08:33 Pre-op diagnosis: Anal fissure Post-op diagnosis: same Procedure & Clinicians Procedure: Examination under anesthesia and Botox injection Same procedure as scheduled: Yes Surgeon: Christopher Mckeon Dental Service Technician: Best Frederick Anesthesia Type: General Operative Notes Procedure in detail: The patient is a 74-year-old man with perirectal pain and a presumed fissure versus hemorrhoids. He was consented for examination under anesthesia and possible Botox injection. The patient was brought to the operating room and general endotracheal anesthesia was induced. He was then positioned in the prone claudia-knife position. The perineum was prepped and draped in the usual fashion. A time-out was performed. There were some small mixed hemorrhoids. There were no significant prolapsing internal hemorrhoids. A digital rectal exam was performed with one well lubricated finger followed by 2 fingers for dilation of the sphincter muscle. The sphincter tone was moderate. Next, a well lubricated retractor was inserted and the anus was inspected. There appeared to be no obvious anterior fissure. There was a small posterior fissure. We injected some Marcaine and Exparel into the skin and anoderm around the posterior fissure. We then injected about 25 units of botulinum toxin into the left lateral sphincter muscle and another 25 units into the right lateral sphincter muscle. Patient was then awakened and brought to recovery room. Specimen: None EBL: 1 mL Best PAYNE provided assistance with exposure, retraction and closure of incisions. Post-operative Disposition: PACU
[2024-04-24 08:45] VITALS: BP 121/60; PULSE 60; RESP 17; TEMP 36.5; O2SAT 96
[2024-04-24 08:50] VITALS: BP 124/64; PULSE 58; RESP 12; O2SAT 99
[2024-04-24 08:55] VITALS: BP 126/53; PULSE 55; RESP 15; O2SAT 98
[2024-04-24 09:01] VITALS: BP 123/61; PULSE 55; RESP 13; TEMP 36.4; O2SAT 97
== END 2024-04-24 09:22 | disposition home or self-care (01) ==
PROVIDERS: Family Provider Family Medicine; PCP Family Medicine; Referring Provider Surgery; Visit Provider Surgery
PROC: (CPT 46505; principal; 2024-04-24 07:45)
DX: K60.2 Anal fissure, unspecified (principal)
CPT/HCPCS: 46505; C9290; J0585; J1100; J2405; J2704; J3010; J3490

== ENCOUNTER → 2024-09-19 15:08 | Outpatient (CLI) | payer MEDICARE, OTHER, SELFPAY ==
--- NOTE | 2024-09-19 15:10 | DI.RAD.S_ITS ---
PROCEDURE: FL BARIUM SWALLOW INDICATIONS: Globus sensation at level of thyroid COMPARISON: None. FINDINGS: Function: There is normal esophageal peristalsis. There is a moderate size hiatus hernia with gross reflux of gastric contents into the esophagus in the Trendelenburg position with water drinking.. There is normal transit of a calibrated barium tablet through the esophagus into the stomach. Specific attention to the upper esophagus showed no abnormality. The patient does have postnasal drip in this may be the problem that is causing the uncomfortable sensation in the upper esophagus. Morphology: Air-contrast images demonstrate normal mucosal morphology. Single contrast views show no esophageal strictures, extrinsic mass effects, or diverticula. Limited images of the stomach demonstrate normal appearance. IMPRESSION: Normal upper mid and lower esophagus with hiatus hernia and gross reflux. Dictated by: Fransico Guerra M.D. on 09/19/2024 at 17:33 Approved by: Fransico Guerra M.D. on 09/19/2024 at 17:38
== END ==
PROVIDERS: Family Provider Family Medicine; PCP Family Medicine; Referring Provider Physician Assistant; Visit Provider Physician Assistant
DX: R09.A2 Foreign body sensation, throat (principal); K44.9 Diaphragmatic hernia without obstruction or gangrene; K21.9 Gastro-esophageal reflux disease without esophagitis
CPT/HCPCS: 74220

== ENCOUNTER → 2024-11-16 08:17 | Outpatient (CLI) | payer MEDICARE, OTHER, SELFPAY ==
[2024-11-16 09:15] LABS: Add Manual Diff / Slide Review NO; Basophils Absolute Auto 0 /uL (0-100); Basophils Percent Auto 0.8 % (0-2); Eosinophils Absolute Auto 100 /uL (0-450); Eosinophils Percent Auto 2.4 % (2-4); Hematocrit 41.5 % (41-53); Hemoglobin 14.1 g/dL (13.5-17.5); Lymphocytes Absolute Auto 1300 /uL (1100-4500); Lymphocytes Percent Auto 22.3 % (25-40); Mean Corpuscular HGB Conc 34.1 % (30-36); Monocytes Absolute Auto 400 /uL (0-900); Monocytes Percent Auto 6.9 % (3-14); Neutrophils Absolute Auto 4100 /uL (1500-7000); Neutrophils Percent Auto 67.6 % (50-75); Platelet Count 217 X10^3/uL (150-400); Red Blood Cell Count 4.88 X10^6/uL (4.5-5.9); Red Cell Distribution Width 13.8 % (11.6-14.8)
[2024-11-16 09:57] LABS: Alanine Aminotransferase 15 IU/L (<50); Albumin 4.3 g/dL (3.5-5.0); Albumin Globulin Ratio 1.7 (1.0-2.8); Alkaline Phosphatase 62 U/L (38-126); Aspartate Aminotransferase 20 IU/L (17-59); BUN Creatinine Ratio 13.3 (6-22); Bilirubin Total 0.7 mg/dL (0.2-1.3); Blood Urea Nitrogen 12 mg/dL (9-20); Calcium 9.9 mg/dL (8.4-10.2); Carbon Dioxide 25 mmol/L (22-32); Chloride 108 mmol/L (98-107); Cholesterol 152 mg/dL (140-199); Estimated Glomerular Filt Rate > 60 mL/min (>60); Globulin 2.6 g/dL (1.7-4.1); Glucose 101 mg/dL (80-110); HDL Cholesterol 41 mg/dL (40-60); HEMOLYSIS < 15 (0-50); LDL Cholesterol Calculated 95 mg/dL (<100); Potassium 4.5 mmol/L (3.4-5.1); Sodium 141 mmol/L (137-145); Total Protein 6.9 g/dL (6.3-8.2); Triglycerides 82 mg/dL (35-150)
== END ==
PROVIDERS: Family Provider Family Medicine; PCP Family Medicine; Referring Provider Family Medicine; Visit Provider Family Medicine
DX: E78.5 Hyperlipidemia, unspecified (principal); I10 Essential (primary) hypertension; Z79.899 Other long term (current) drug therapy
CPT/HCPCS: 36415; 80053; 80061; 84443; 85025

== ENCOUNTER → 2024-12-10 12:02 | Outpatient (CLI) | payer MEDICARE, OTHER, SELFPAY ==
[2024-12-10 13:08] LABS: Prostate Specific Antigen Scrn 2.76 ng/mL (0.1-4.0)
== END ==
PROVIDERS: Family Provider Family Medicine; PCP Family Medicine; Referring Provider Family Medicine; Visit Provider Family Medicine
DX: Z12.5 Encounter for screening for malignant neoplasm of prostate (principal); N40.0 Benign prostatic hyperplasia without lower urinary tract symptoms; N52.9 Male erectile dysfunction, unspecified
CPT/HCPCS: G0103

== ENCOUNTER → 2025-06-18 09:19 | Outpatient (CLI) | payer MEDICARE, OTHER, SELFPAY ==
[2025-06-18 10:38] LABS: Alanine Aminotransferase 14 IU/L (<50); Albumin 4.5 g/dL (3.5-5.0); Albumin Globulin Ratio 1.6 (1.0-2.8); Alkaline Phosphatase 72 U/L (38-126); Blood Urea Nitrogen 17 mg/dL (9-20); Calcium 9.0 mg/dL (8.4-10.2); Carbon Dioxide 25 mmol/L (22-32); Chloride 106 mmol/L (98-107); Estimated Glomerular Filt Rate > 60 mL/min (>60); Globulin 2.8 g/dL (1.7-4.1); Glucose 96 mg/dL (70-99); HEMOLYSIS < 15 (0-50); Potassium 4.3 mmol/L (3.4-5.1); Sodium 140 mmol/L (137-145); Total Protein 7.3 g/dL (6.3-8.2)
== END ==
PROVIDERS: Family Provider Family Medicine; PCP Family Medicine; Referring Provider Family Medicine; Visit Provider Family Medicine
DX: Z00.00 Encounter for general adult medical examination without abnormal findings (principal); Z12.5 Encounter for screening for malignant neoplasm of prostate; Z80.42 Family history of malignant neoplasm of prostate; I10 Essential (primary) hypertension; I71.20 Thoracic aortic aneurysm, without rupture, unspecified
CPT/HCPCS: 36415; 80053; G0103